=== PATIENT | female | born 1950 | race Caucasian/White ===

== ENCOUNTER 2017-04-06 16:06 | Emergency (ER) | payer MEDICARE, OTHER ==
--- NOTE | 2017-04-06 16:37 | RAD ---
EXAM DESCRIPTION: Pelvis CLINICAL HISTORY: 66 years Female, fall with left hip pain COMPARISON: None. FINDINGS: Single AP view the pelvis shows a moderately displaced and slightly angulated mid left femoral neck fracture. A left hip joint is anatomically aligned. No displaced pelvic fracture is seen elsewhere. The proximal right femur is partially excluded, but the right hip joint is anatomically aligned. IMPRESSION: Moderately displaced and slightly angulated mid left femoral neck fracture. Electronically signed by: Price Frausto MD 04/06/2017 4:37 PM CDT
--- NOTE | 2017-04-06 16:38 | RAD ---
EXAM DESCRIPTION: Hip,Left 2 Views CLINICAL HISTORY: 66 years Female, fall with left hip pain COMPARISON: None. FINDINGS: 2 views of the left hip show a moderately displaced and angulated mid left femoral neck fracture. The left hip joint is anatomically aligned. No acetabular or other left-sided pelvic fracture is seen. IMPRESSION: Moderately displaced and angulated mid left femoral neck fracture. Electronically signed by: Price Frausto MD 04/06/2017 4:37 PM CDT
--- NOTE | 2017-04-06 16:59 | RAD ---
EXAM DESCRIPTION: Chest,1 View CLINICAL HISTORY: femur neck fracture COMPARISON: None available FINDINGS: There is some well-defined alveolar opacity in the left lung base. The left heart border is poorly visualized, and this could represent prominent epicardial fat versus cardiomegaly. Mediastinal contours are otherwise unremarkable. There is no airspace consolidation or pleural effusion. The bronchovascular markings are within normal limits, and the lungs are not hyperinflated. There is no pneumothorax or acute fracture. IMPRESSION: Abnormal appearance of the left lung base which may be related to prominent epicardial fat versus cardiomegaly or artifact from superimposed soft tissues. Given lack of relevant history, pneumonia is considered less likely. If clinically suspicious, PA and lateral chest radiograph is suggested for further evaluation. No additional in the thoracic abnormality. Electronically signed by: Price Frausto MD 04/06/2017 4:58 PM CDT
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
[2017-04-06 18:26] VITALS: TEMP 98.1; O2SAT 96
[2017-04-07 13:30] VITALS: BP 114/51
== END 2017-04-06 18:30 | disposition short-term general hospital (02) ==
LOC: ER 16:06
DX: S72.002A Fracture of unspecified part of neck of left femur, initial encounter for closed fracture (principal); I10 Essential (primary) hypertension; M10.9 Gout, unspecified; Z88.6 Allergy status to analgesic agent; Z96.651 Presence of right artificial knee joint; W01.0XXA Fall on same level from slipping, tripping and stumbling without subsequent striking against object, initial encounter; Y92.89 Other specified places as the place of occurrence of the external cause

== ENCOUNTER → 2017-08-02 | Outpatient (CLI) | payer MEDICARE, OTHER | END | disposition home or self-care (01) | LOC: GMAM 10:42 | PROVIDERS: ATTEND Family Medicine | DX: M10.9 Gout, unspecified (principal) ==

== ENCOUNTER → 2018-02-07 | Outpatient (CLI) | payer MEDICARE, OTHER | LOC: GMAM 10:29 | PROVIDERS: ATTEND Family Medicine | DX: M10.9 Gout, unspecified (principal) ==

== ENCOUNTER → 2018-09-10 | Outpatient (CLI) | payer MEDICARE, OTHER | LOC: GMAM 09:58 | PROVIDERS: ATTEND Family Medicine | DX: E83.52 Hypercalcemia (principal); M10.9 Gout, unspecified ==

== ENCOUNTER → 2018-10-10 | Outpatient (CLI) | payer MEDICARE, OTHER ==
--- NOTE | 2018-10-11 10:05 | CT ---
Procedure: CT LUNG SCREENING Exam Date: 10/10/2018. Ordering Provider: Erlin Paulino Clinical Indication: Z87.891 This patient meets eligibility criteria for low-dose CT lung cancer screening. Comparison: Abdominal CT scan 10/15/2012. Technique: Using a multislice scanner, sequential helical axial imaging was obtained in the thorax, 2.5 mm thickness, 2.5 mm separation, from the level of the thoracic inlet through the lung bases without IV contrast. A low dose protocol was utilized: CTDI: 2.34 mGy. 120. kVp. 60 mA. Dose was adjusted due to patient large body habitus, but remains below 3 mGy. 2D sagittal and coronal reconstructed images, 6.0 mm thickness, were obtained. This exam was performed according to our departmental dose optimization program which includes use of automated exposure control, adjustment of the mA and/or kV according to patient size and/or use of iterative reconstruction technique. Nodule measurements under 10 mm are given as mean value of 3 axes diameters. FINDINGS: Lungs and large airways: Left lower lobe volume is decreased. Anterior medial left diaphragmatic hernia. Minimal atelectasis in the inferior lingula. Bibasilar posterior mild atelectatic changes. No abnormal nodules masses or infiltrates. Pleura: No bilateral effusion or pneumothorax. Mediastinum and tanya: evaluation limited by low dose technique and lack of IV contrast. Anterior medial mesenteric fat and transverse colon herniation anterior to the heart with mass effect on the left lung. Heart and great vessels: Atherosclerotic calcification in the proximal brachiocephalic vessels, aortic arch, and descending thoracic aorta. Coronary artery calcifications. Chest wall, lower neck, axillae: Evaluation also limited by same factors as described above. Minimal image degradation due to patient body habitus. Otherwise negative. Upper abdomen: Anterior hernia as described containing the colon. No evidence of incarceration obstruction or strangulation. No free air or free fluid. Osseous structures: Evaluation limited by low dose MIP technique. Spondylosis lower mid thoracic spine and lower cervical spine. Thoracolumbar levoscoliosis. No lytic or blastic lesions. IMPRESSION: 1. No abnormal nodules masses or infiltrates. Anterior medial herniation of the abdominal mesentery and transverse colon anterior to the heart with mass effect on the inferior lingula and left lower lobe with volume loss and minimal compression atelectasis. Also posterior dependent atelectasis. [facility] Best Practice recommendations according to lung RADS classification is one year follow-up.. Please see below for Lung RADS category and FOLLOW-UP.* 2. Anterior medial left hemidiaphragm herniation containing transverse colon with no evidence of obstruction incarceration or strangulation of the colon. The hernia has enlarged as well as migration of the transverse colon into the hernia since CT scan September 2012. *Lung RADS category Category 1 - No nodule or definitely benign nodules (probability of malignancy less than 1%). Follow-up: Continue annual screening with Low Dose Chest CT in 12 months. Electronically signed by: Mark Hernandez MD 10/11/2018 10:04 AM [facility]
== END ==
LOC: CT 13:30
PROVIDERS: ATTEND Family Medicine
DX: Z87.891 Personal history of nicotine dependence (principal)

== ENCOUNTER → 2019-03-14 | Outpatient (CLI) | payer MEDICARE, OTHER | LOC: GMAM 11:04 | PROVIDERS: ATTEND Family Medicine | DX: I10 Essential (primary) hypertension (principal) ==

== ENCOUNTER → 2019-09-18 | Outpatient (CLI) | payer MEDICARE, OTHER | LOC: GMAL 10:37 | PROVIDERS: ATTEND Family Medicine | DX: M10.9 Gout, unspecified (principal); I10 Essential (primary) hypertension ==

== ENCOUNTER → 2020-03-30 | Outpatient (CLI) | payer MEDICARE, OTHER | LOC: GMAM 15:22 | PROVIDERS: ATTEND Family Medicine | DX: M10.9 Gout, unspecified (principal); R73.9 Hyperglycemia, unspecified; I10 Essential (primary) hypertension ==

== ENCOUNTER → 2020-05-21 | Outpatient (CLI) | payer MEDICARE, OTHER | LOC: GMAM 11:43 | PROVIDERS: ATTEND Family Medicine | DX: E83.52 Hypercalcemia (principal); R73.9 Hyperglycemia, unspecified; I10 Essential (primary) hypertension ==

== ENCOUNTER → 2020-11-03 | Outpatient (CLI) | payer MEDICARE, OTHER | LOC: GMAM 09:34 | PROVIDERS: ATTEND Family Medicine | DX: I10 Essential (primary) hypertension (principal); R73.9 Hyperglycemia, unspecified; E83.52 Hypercalcemia; M10.9 Gout, unspecified ==

== ENCOUNTER → 2020-11-29 | Outpatient (CLI) | payer MEDICARE, OTHER ==
--- NOTE | 2020-11-29 15:40 | CT ---
Procedure: CT LUNG SCREENING Exam Date: November 29, 2020. Ordering Provider: ARGELIA POON Clinical Indication: PERSONAL HX OF NICOTINE DEPENDENCE . Current cigarette smoker. 15 pack years. This patient meets eligibility criteria for low-dose CT lung cancer screening. Comparison: CT lung cancer screening examination in September 2018. Technique: Using a multislice scanner, sequential helical axial imaging was obtained in the thorax, 2.5 mm thickness, 2.5 mm separation, from the level of the thoracic inlet through the lung bases without IV contrast. A low dose protocol was utilized for BMI greater than 30: BMI: 34. CTDI: 2.91 mGy. 120. kVp. 75 mA. DLP 102 mGy-cm. 2D sagittal and coronal reconstructed images, 6.0 mm thickness, were obtained. This exam was performed according to our departmental dose optimization program which includes use of automated exposure control, adjustment of the mA and/or kV according to patient size and/or use of iterative reconstruction technique. Nodule measurements under 10 mm are given as mean value of 3 axes diameters. FINDINGS: Lungs and large airways: Collaterals scattered blebs in a centrilobular distribution. Stable scarring medial subpleural left lower lobe, again seen to be abutting a posterior medial fatty diaphragmatic hernia, on image 2/-93. Volume loss in the left lower lobe and lingula due to a larger hernia extending from the anterior left hemidiaphragm which is also involving the anterior left mediastinum. pleural parenchymal scarring in the bilateral lower lobes. No new abnormal nodule and no masses. No acute or interval infiltrate. Pleura and space: Bilateral scattered confluent pleural thickening with no acute process. Mediastinum and tanya: evaluation limited by low dose technique and lack of IV contrast. Normal sized small lymph nodes with no dominant solid mass, stable since the prior study. Heart and great vessels: The described calcification in several branches of the vessels, aortic arch and left circumflex which has a very dense calcification, stable since the prior study. Also proximal LAD calcification stable. Chest wall, lower neck, axillae: Evaluation also limited by same factors as described above. No dominant soft tissue mass. Normal-sized axillary and subclavian lymph nodes stable. Upper abdomen: Evaluation limited by low-dose technique. Masslike region in the left adrenal gland with Hounsfield density -18, consistent with an adrenal adenoma. Gallbladder was visualized. Right adrenal gland and spleen are negative. Radiodense material in the gastric lumen. Transverse colon with diverticula visible in the anterior midline and left diaphragmatic hernia. No complications. Stable since the prior study.. Osseous structures: Evaluation limited by low dose MIP technique. Spondylosis moderate to severe in the mid level thoracic spine at T7-8 and T8-T9, stable since the prior study. Lower thoracic levoscoliosis and lower cervical and upper thoracic dextroscoliosis. No compression abnormalities. Arthrosis in the shoulder clavicle and sternal joints. IMPRESSION: 1. Mild emphysematous changes in the lungs bilaterally with scarring. Enlarged hernia involving the left anterior and medial diaphragm extending into the anterior left hemithorax and anterior mediastinum. Minimal volume loss left lower lobe and inferior lingula. Hernia contains colon with diverticula but no complications. No abnormal nodules or masses. No acute or interval infiltrates. [facility] Best Practice Recommendations: please see below for Lung RADS category and FOLLOW-UP.* *Lung RADS category Category 1S - No nodule or definitely benign nodules (probability of malignancy less than 1%). Follow-up: Continue annual screening with Low Dose Chest CT in 12 months. 2. Lung RADS Modifier S - Clinically Significant or Potentially Clinically Significant Findings (non lung cancer). Stable left diaphragmatic hernia containing colon with diverticula but no complications., Also encroaching on the mediastinum abutting the left heart. Electronically signed by: Mark Hernandez MD 11/29/2020 3:39 PM NEUROLOGY TECHNICIAN
== END ==
LOC: CT 08:57
PROVIDERS: ATTEND Family Medicine
DX: K44.9 Diaphragmatic hernia without obstruction or gangrene (principal); J43.9 Emphysema, unspecified; Z12.2 Encounter for screening for malignant neoplasm of respiratory organs; Z87.891 Personal history of nicotine dependence